=== PATIENT | female | born 1980 ===

== ENCOUNTER → 2022-05-22 | Outpatient (CLI) | payer OTHER | LOC: LAB SHORT 13:56 → PLD 13:56 | DX: D48.5 Neoplasm of uncertain behavior of skin (principal) | CPT/HCPCS: 88341; 88342 ==

== ENCOUNTER → 2022-10-27 | Outpatient (CLI) | payer OTHER ==
[2022-10-27 19:30] LABS: Free Thyroxine 0.97 ng/dL (0.70-1.60); Percent Saturation 13.3 % (15.0-50.0)
== END | disposition home or self-care (01) ==
LOC: LAB SHORT 18:37
PROVIDERS: Family Medicine
DX: R53.83 Other fatigue (principal)
CPT/HCPCS: 82728; 83036; 83540; 83550; 83970; 84439; 86376